=== PATIENT | male | born 1945 | race Two or more races ===

== ENCOUNTER → 2023-01-23 | Day surgery (SDC) | payer OTHER | END | disposition home or self-care (01) | LOC: ADM 01-19 14:00 → AMB-ENDOS 10:05 | PROVIDERS: ATTEND Surgery | DX: D12.0 Benign neoplasm of cecum (principal); D12.5 Benign neoplasm of sigmoid colon; K92.1 Melena; Z20.822 Contact with and (suspected) exposure to COVID-19; Z03.818 Encounter for observation for suspected exposure to other biological agents ruled out; K64.9 Unspecified hemorrhoids ==

== ENCOUNTER 2023-08-04 08:10 | Inpatient (IN) | payer OTHER ==
[~2023-08-04] VITALS: Ht 175.3 cm; Wt 88.9 kg
[2023-08-05] MEDS ORDERED: TOPROL XL100 M1 PO (10:45)
[2023-08-05] MEDS ORDERED: CILOS PO (10:46)
[2023-08-05] MEDS ORDERED: SIMVASTATIN5 MG PO (10:46)
[2023-08-05] MEDS ORDERED: LEVOTHYROXINE25 MCG PO (10:46)
[2023-08-11] MEDS ORDERED: ST. JOSEPH ASPI81 M2 (16:35)
[2023-08-11] MEDS ORDERED: CILOSTAZOL100 MG (16:36)
[2023-08-11 21:26] LABS: HEMATOCRIT 42.4 % (39.0-48.0); HEMOGLOBIN 14.2 g/dL (13-16.00); MEAN CELL VOLUME 94.6 fL (80.0-100.00); MEAN CORPUSCULAR HEMOGLOBIN 31.6 pg (27.00-32.0); MEAN CORPUSCULAR HGB CONC 33.4 g/dl (32.0-36.0); PLATELET COUNT 171 K/uL (150-450); RED BLOOD COUNT 4.48 M/uL (4.00-6.00); RED CELL DISTRIBUTION WIDTH 13.5 % (11.5-14.5)
[2023-08-11 21:51] LABS: ALBUMIN 3.4 gm/dL (3.4-5.0); CREATININE SERUM 0.87 mg/dL (0.70-1.30); GFR 84.65; MAGNESIUM 1.7 mg/dL (1.8-2.4); PHOSPHOROUS 3.6 mg/dL (2.5-4.9); POTASSIUM 3.83 mEq/L (3.5-5.1)
[2023-08-12 06:28] LABS: HEMATOCRIT 38.1 % (39.0-48.0); HEMOGLOBIN 13.7 g/dL (13-16.00); MEAN CELL VOLUME 93.1 fL (80.0-100.00); MEAN CORPUSCULAR HEMOGLOBIN 33.3 pg (27.00-32.0); MEAN CORPUSCULAR HGB CONC 35.8 g/dl (32.0-36.0); PLATELET COUNT 152 K/uL (150-450); RED CELL DISTRIBUTION WIDTH 13.6 % (11.5-14.5)
[2023-08-12 06:36] LABS: CALCIUM 8.6 mg/dL (8.5-10.1); CREATININE SERUM 0.77 mg/dL (0.70-1.30); GFR 97.46; MAGNESIUM 1.7 mg/dL (1.8-2.4); PHOSPHOROUS 3.1 mg/dL (2.5-4.9); POTASSIUM 3.42 mEq/L (3.5-5.1)
[2023-08-16] MEDS ORDERED: PERCOCET 5-3251 EACH PO (13:12)
[2023-08-16] MEDS ORDERED: HYOSCYAMINE0.125 M1 SL (13:12)
== END 2023-08-16 14:14 | disposition home or self-care (01) | DRG 330 ==
LOC: SURH 08-11 07:00 → O/R 08-11 09:13 → SURG 08-11 09:13 → SURH 08-11 09:45 → SURG 08-11 20:34 → SURH 08-14 14:07
PROVIDERS: ADMIT Surgery; ATTEND Surgery
PROC: 07BB4ZZ Excision of Mesenteric Lymphatic, Percutaneous Endoscopic Approach (ICD-10-PCS; 2023-08-11)
PROC: 0DTF4ZZ Resection of Right Large Intestine, Percutaneous Endoscopic Approach (ICD-10-PCS; principal; 2023-08-11 07:00)
DX: D12.2 Benign neoplasm of ascending colon (principal); K92.1 Melena; D37.4 Neoplasm of uncertain behavior of colon; R59.0 Localized enlarged lymph nodes